=== PATIENT | male | born 1970 | race Two or more races ===

== ENCOUNTER 2023-01-08 06:23 | Day surgery (SDC) | payer OTHER ==
[~2023-01-08] VITALS: Ht 177.8 cm; Wt 74.8 kg
[~2023-01-08 06:23] MED LIST: LISI20TA56 PO; ceFAZolin 2 GM/D5W100ml 100 ML IV ONE
[2023-01-08] MEDS ORDERED: EPINEPHrine HCL 1 MG/1 ML AMP ONE (06:36)
[2023-01-08] MEDS ORDERED: BUPIVACAINE HCL 50 ML ONE (06:38)
[2023-01-08] MEDS ORDERED: LIDOCAINE 2% JELLY 11ml (GLYDO) ONE (07:04)
[2023-01-08] MEDS ORDERED: SUCCINYLCHOLINE CHLORIDE 20 MG/ML 10ML VIAL IV ONE (07:04)
[2023-01-08] MEDS ORDERED: MEPERIDINE HCL (25 MG/ML) 1ML VIAL ONE (07:16)
[2023-01-08] MEDS ORDERED: fentaNYL CITRATE 100 MCG/2 ML VL ONE (07:16)
[2023-01-08] MEDS ORDERED: MIDAZOLAM HCL 2MG/2ML 2ml VIAL (1mg/ml) ONE (07:17)
[2023-01-08] MEDS ORDERED: PROPOFOL 10 MG/ML 20 ML IV ONE (08:05)
[2023-01-08] MEDS ORDERED: DexAMETHasone SOD PHOS 10MG/1ML VIAL INJ ONE (08:05)
[2023-01-08] MEDS ORDERED: TRANEXAMIC ACID 10 ML ONE (08:06)
[2023-01-08] MEDS ORDERED: MORPHINE SULFATE 4 MG/ML SYR/VIAL IV PRN (08:30)
[2023-01-08] MEDS ORDERED: ONDANSETRON HCL 4 MG/2 ML VIAL IV PRN (08:30)
[2023-01-08] MEDS ORDERED: MIDAZOLAM HCL 2MG/2ML 2ml VIAL (1mg/ml) IV PRN (08:30)
[2023-01-08] MEDS ORDERED: KETOROLAC TROMETH 30 MG/ML 1ML VIAL IV ONE (08:30)
[2023-01-08] MEDS ORDERED: LABETALOL HCL 5 MG/ML 4ML SYRINGE IV PRN (08:30)
[2023-01-08] MEDS ORDERED: HYDROmorphone HCL 2 MG/ML VL/or syr IV PRN (08:30)
[2023-01-08] MEDS ORDERED: ePHEDrine SULFATE 50 MG/ML AMP IV PRN (08:30)
[2023-01-08] MEDS ORDERED: SUGAMMADEX 200mg/2ml Vial (100MG/ML) IV ONE (08:31)
[2023-01-08] MEDS ORDERED: ONDANSETRON HCL 4 MG/2 ML VIAL ONE (08:31)
[2023-01-08] MEDS ORDERED: PERCOT PO (09:37)
[2023-01-08] MEDS ORDERED: OXYCODONE W/ ACETAMINOPHEN 5/325MG TABLET PO PRN (09:45)
[2023-01-08] MEDS ORDERED: LISINOPRIL 20 MG TAB PO SCH (10:00)
[2023-01-08 10:02] VITALS: PULSE 97; RESP 17; TEMP 97.2; O2SAT 97
[2023-01-08] MEDS ORDERED: HYDROmorphone HCL 2 MG/ML VL/or syr IV ONE (10:35)
[2023-01-08 11:10] VITALS: BP 134/78; PULSE 79; RESP 18; O2SAT 98
== END 2023-01-14 11:45 | disposition home or self-care (01) ==
LOC: SUR 06:23
PROVIDERS: ATTEND Orthopaedic Surgery Sports Medicine
DX: M75.121 Complete rotator cuff tear or rupture of right shoulder, not specified as traumatic (principal); M94.211 Chondromalacia, right shoulder; Z98.890 Other specified postprocedural states; Z90.49 Acquired absence of other specified parts of digestive tract
CPT/HCPCS: 29826; 29827; J0171; J0330; J1100; J1170; J2175; J2250; J2405; J2704; J3010; J3490; A4565